=== PATIENT | female | born 1935 | race Caucasian/White ===

== ENCOUNTER 2016-06-28 12:23 | Emergency (ER) | payer MEDICARE, OTHER ==
[~2016-06-28 12:23] MED LIST: ABREVA2 GM TOP; ALBUTEROL0.63 MG/3 NEB; ALBUTEROL2.5 MG/3 M IH; AMITIZA24 MCG PO; ANTIVERT25 MG PO; CARAFATE1 GM PO; CLONAZEPAM0.5 MG PO; COLACE100 MG PO; COLCHICINE0.6 M1 PO; COLCRYS0.6 MG PO; DESYREL50 MG PO; DUONEB 2.5-0.5MG3 ML NEB; FEOSOL325 MG PO; FOLIC ACID1 MG PO; GABAPENTIN400 MG PO; HYDROCODON-ACE1 EAC6 PO; KLOR-CON 88 MEQ PO; LEVAQUIN250 MG PO; LEVAQUIN500 MG PO; LEVAQUIN750 MG PO; LIDODERM700 MG TP; LIPITOR10 MG PO; MEGACE ES625 MG/5 M PO; MEGACE400 MG/10 PO; MULTIVITAMINS1 EAC1 PO; NEURONTIN800 MG PO; NICODERM 7MG PAT1 EA TD; OXYCODON-ACETA1 EAC1 PO; PANTOPRAZOLE SO40 MG PO; PERCOCET 10-321 EACH PO; PLAVIX75 MG PO; POTASSIUM CHLOR8 ME1 PO; PREDNISONE10 MG PO; PREMARIN VAG CR45 GM PV; SYMBICORT 16060 PUFF INH; THEOPHYLLINE C300 MG PO; TYLENOL325 M1 PO; XANAX0.5 MG PO; XOPENEX0.63 MG/3 NEB; ZOFRAN4 MG PO; [UNRECOGNIZED DRUG - OTHER] PO
[2016-06-28 13:01] LABS: BASO % 0.1 % (0.1-1.2); GRAN # 9.3 10_X3_uL (1.6-6.1); GRAN % 80.2 % (34.0-71.1); HEMATOCRIT 42.9 % (34-45); HEMOGLOBIN 13.1 g/dL (11.2-15.7); LYMPH # 0.6 10_X3_uL (1.2-3.7); LYMPH % 5.5 % (19.3-51.7); MEAN CORPUSCULAR HEMOGLOBIN 29.6 pg (27.0-33.0); MEAN CORPUSCULAR HGB CONC 30.5 g/dL (32.0-36.0); MEAN CORPUSCULAR VOLUME 97.1 fL (79-95); MEAN PLATELET VOLUME 11.2 fl (7.5-11.5); MONO # 1.7 10_X3_uL (0.2-0.9); MONO % 14.2 % (4.7-12.5); PLATELET COUNT 159 x10_3/uL (182-369); RED BLOOD COUNT 4.42 x10_6/uL (3.9-5.2); RED CELL DISTRIBUTION WIDTH 13.9 % (11.7-14.4); WHITE BLOOD COUNT 11.6 x10_3/uL (4.0-10.0)
[2016-06-28 13:18] LABS: ALBUMIN 3.8 gm/dL (3.4-5.0); BILIRUBIN,TOTAL 0.17 mg/dL (0.0-1.0); CREATININE 1.2 mg/dL (0.6-1.3); POTASSIUM 5.9 mmol/L (3.5-5.1); TOTAL PROTEIN 6.3 gm/dL (6.4-8.2)
[2016-06-28 16:08] LABS: CALCIUM 9.6 mg/dL (8.7-10.7)
== END 2016-06-28 16:58 | disposition short-term general hospital (02) ==
LOC: ER 12:23
PROVIDERS: Emergency Medicine
DX: E87.5 Hyperkalemia (principal); R79.89 Other specified abnormal findings of blood chemistry; R53.1 Weakness; R25.9 Unspecified abnormal involuntary movements; J44.9 Chronic obstructive pulmonary disease, unspecified; R10.9 Unspecified abdominal pain; F17.210 Nicotine dependence, cigarettes, uncomplicated; Z85.028 Personal history of other malignant neoplasm of stomach; Z79.899 Other long term (current) drug therapy
CPT/HCPCS: 36415; 70450; 71010; 80053; 82550; 82553; 85025; 93005; 96374; 96375; 99070; 99285; 99285-25

== ENCOUNTER 2016-07-12 13:17 | Emergency (ER) | payer MEDICARE, OTHER | END 2016-07-12 18:35 | disposition other institution (70) | LOC: ER 13:17 | DX: N30.90 Cystitis, unspecified without hematuria (principal); R11.10 Vomiting, unspecified; I51.9 Heart disease, unspecified; I10 Essential (primary) hypertension; J44.9 Chronic obstructive pulmonary disease, unspecified; Z85.028 Personal history of other malignant neoplasm of stomach; Z90.710 Acquired absence of both cervix and uterus; F17.210 Nicotine dependence, cigarettes, uncomplicated; Z88.5 Allergy status to narcotic agent | CPT/HCPCS: 99284; 99284-25 ==

== ENCOUNTER 2016-07-12 13:17 | Inpatient (IN) | payer MEDICARE, OTHER ==
[~2016-07-12] VITALS: Ht 157.5 cm; Wt 43.0 kg
[2016-07-12 14:29] LABS: BASO % 0.3 % (0.1-1.2); GRAN # 2.2 10_X3_uL (1.6-6.1); GRAN % 65.4 % (34.0-71.1); HEMATOCRIT 35.3 % (34-45); HEMOGLOBIN 11.1 g/dL (11.2-15.7); LYMPH # 0.9 10_X3_uL (1.2-3.7); LYMPH % 25.9 % (19.3-51.7); MEAN CORPUSCULAR HEMOGLOBIN 29.6 pg (27.0-33.0); MEAN CORPUSCULAR HGB CONC 31.4 g/dL (32.0-36.0); MEAN CORPUSCULAR VOLUME 94.1 fL (79-95); MEAN PLATELET VOLUME 9.5 fl (7.5-11.5); MONO # 0.3 10_X3_uL (0.2-0.9); MONO % 8.4 % (4.7-12.5); PLATELET COUNT 406 x10_3/uL (182-369); RED BLOOD COUNT 3.75 x10_6/uL (3.9-5.2); RED CELL DISTRIBUTION WIDTH 14.3 % (11.7-14.4); WHITE BLOOD COUNT 3.3 x10_3/uL (4.0-10.0)
[2016-07-12 14:58] LABS: ALBUMIN 3.4 gm/dL (3.4-5.0); ALKALINE PHOSPHATASE 93 U/L (50-136); ALT/SGPT 11 U/L (3.5-33.9); AMYLASE 37 U/L (15.62-74.58); AST/SGOT 19 U/L (7.04-26.96); BILIRUBIN,TOTAL 0.21 mg/dL (0.0-1.0); BLOOD UREA NITROGEN 14 mg/dL (7-18); CALCIUM 9.3 mg/dL (8.7-10.7); CARBON DIOXIDE 33 mmol/L (21-32); CREATININE < 0.5 mg/dL (0.6-1.3); GLUCOSE,RANDOM 110 mg/dL (70-99); LIPASE 22 U/L (6.75-60.75); POTASSIUM 4.2 mmol/L (3.5-5.1); SODIUM 133 mmol/L (136-145); TOTAL PROTEIN 5.8 gm/dL (6.4-8.2)
[2016-07-12 15:25] LABS: URINE BILIRUBIN 2+ (NEGATIVE); URINE BLOOD TRACE (NEGATIVE); URINE GLUCOSE (UA) NORMAL (NORMAL); URINE KETONE 3+ (NEGATIVE); URINE LEUKOCYTE ESTERASE 1+ (NEGATIVE); URINE NITRATE NEGATIVE (NEGATIVE); URINE PROTEIN 1+ (NEGATIVE)
[2016-07-12 15:40] LABS: URINE BACTERIA 1+ (NONE SEEN); URINE RBC 0-5 /[HPF] (0-2); URINE SQUAMOUS EPITHELIAL CELL 0-10 /[HPF] (NONE SEEN); URINE YEAST FEW (NONE SEEN)
[2016-07-14 07:09] LABS: HEMATOCRIT 33.2 % (34-45); HEMOGLOBIN 10.1 g/dL (11.2-15.7); MEAN CORPUSCULAR HEMOGLOBIN 28.9 pg (27.0-33.0); MEAN CORPUSCULAR HGB CONC 30.4 g/dL (32.0-36.0); MEAN CORPUSCULAR VOLUME 95.1 fL (79-95); MEAN PLATELET VOLUME 9.6 fl (7.5-11.5); RED BLOOD COUNT 3.49 x10_6/uL (3.9-5.2); RED CELL DISTRIBUTION WIDTH 14.7 % (11.7-14.4); WHITE BLOOD COUNT 3.7 x10_3/uL (4.0-10.0)
[2016-07-14 07:17] LABS: CALCIUM 8.8 mg/dL (8.7-10.7); CARBON DIOXIDE 36 mmol/L (21-32); CREATININE < 0.5 mg/dL (0.6-1.3); GLUCOSE,RANDOM 135 mg/dL (70-99); POTASSIUM 4.2 mmol/L (3.5-5.1); SODIUM 136 mmol/L (136-145)
[2016-07-14 07:25] LABS: BLOOD UREA NITROGEN 5 mg/dL (7-18)
[2016-07-15 06:35] LABS: HEMATOCRIT 32.6 % (34-45); HEMOGLOBIN 9.9 g/dL (11.2-15.7); MEAN CORPUSCULAR HEMOGLOBIN 29.6 pg (27.0-33.0); MEAN CORPUSCULAR HGB CONC 30.4 g/dL (32.0-36.0); MEAN CORPUSCULAR VOLUME 97.3 fL (79-95); MEAN PLATELET VOLUME 9.2 fl (7.5-11.5); RED BLOOD COUNT 3.35 x10_6/uL (3.9-5.2); RED CELL DISTRIBUTION WIDTH 14.7 % (11.7-14.4)
[2016-07-15 06:50] LABS: BLOOD UREA NITROGEN 5 mg/dL (7-18); CALCIUM 8.7 mg/dL (8.7-10.7); CARBON DIOXIDE 36 mmol/L (21-32); CREATININE < 0.5 mg/dL (0.6-1.3); GLUCOSE,RANDOM 100 mg/dL (70-99); MAGNESIUM 1.5 mg/dL (1.8-2.4); POTASSIUM 3.9 mmol/L (3.5-5.1); SODIUM 141 mmol/L (136-145)
[2016-07-15 21:53] LABS: URINE BILIRUBIN NEGATIVE (NEGATIVE); URINE BLOOD NEGATIVE (NEGATIVE); URINE GLUCOSE (UA) NORMAL (NORMAL); URINE KETONE NEGATIVE (NEGATIVE); URINE LEUKOCYTE ESTERASE TRACE (NEGATIVE); URINE NITRATE NEGATIVE (NEGATIVE); URINE PROTEIN NEGATIVE (NEGATIVE); UROBILINOGEN NORMAL mg/dL (<1.0)
[2016-07-15 22:19] LABS: URINE SQUAMOUS EPITHELIAL CELL 0-10 /[HPF] (NONE SEEN); URINE WBC 0-5 /[HPF] (0-5)
[2016-07-16 06:48] LABS: BLOOD UREA NITROGEN 6 mg/dL (7-18); CALCIUM 8.8 mg/dL (8.7-10.7); CARBON DIOXIDE 39 mmol/L (21-32); CREATININE < 0.5 mg/dL (0.6-1.3); GLUCOSE,RANDOM 105 mg/dL (70-99); MAGNESIUM 2.1 mg/dL (1.8-2.4); POTASSIUM 4.3 mmol/L (3.5-5.1); SODIUM 142 mmol/L (136-145)
[2016-07-16 07:03] LABS: HEMATOCRIT 32.1 % (34-45); HEMOGLOBIN 9.6 g/dL (11.2-15.7); MEAN CORPUSCULAR HEMOGLOBIN 29.2 pg (27.0-33.0); MEAN CORPUSCULAR HGB CONC 29.9 g/dL (32.0-36.0); MEAN CORPUSCULAR VOLUME 97.6 fL (79-95); MEAN PLATELET VOLUME 9.8 fl (7.5-11.5); RED BLOOD COUNT 3.29 x10_6/uL (3.9-5.2); RED CELL DISTRIBUTION WIDTH 14.8 % (11.7-14.4); WHITE BLOOD COUNT 4.5 x10_3/uL (4.0-10.0)
[2016-07-17 06:51] LABS: BLOOD UREA NITROGEN 7 mg/dL (7-18); CALCIUM 8.9 mg/dL (8.7-10.7); CARBON DIOXIDE 36 mmol/L (21-32); CREATININE < 0.5 mg/dL (0.6-1.3); GLUCOSE,RANDOM 125 mg/dL (70-99); SODIUM 141 mmol/L (136-145)
[2016-07-17 07:03] LABS: HEMATOCRIT 33.9 % (34-45); MEAN CORPUSCULAR HEMOGLOBIN 29.2 pg (27.0-33.0); MEAN CORPUSCULAR HGB CONC 29.5 g/dL (32.0-36.0); MEAN CORPUSCULAR VOLUME 98.8 fL (79-95); MEAN PLATELET VOLUME 10.2 fl (7.5-11.5); RED BLOOD COUNT 3.43 x10_6/uL (3.9-5.2); RED CELL DISTRIBUTION WIDTH 14.9 % (11.7-14.4); WHITE BLOOD COUNT 5.6 x10_3/uL (4.0-10.0)
== END 2016-07-17 12:25 | disposition home or self-care (01) | DRG 690 ==
LOC: ER 13:17 → MS 18:35
PROVIDERS: Emergency Medicine; Family Medicine; ADMIT Family Medicine
DX: N39.0 Urinary tract infection, site not specified (principal); K52.9 Noninfective gastroenteritis and colitis, unspecified; D64.9 Anemia, unspecified; E83.42 Hypomagnesemia; E86.0 Dehydration; T48.6X5A Adverse effect of antiasthmatics, initial encounter; J44.9 Chronic obstructive pulmonary disease, unspecified; I11.0 Hypertensive heart disease with heart failure; I50.9 Heart failure, unspecified; R50.9 Fever, unspecified; M10.9 Gout, unspecified; R19.7 Diarrhea, unspecified; R11.2 Nausea with vomiting, unspecified; R10.9 Unspecified abdominal pain; R06.02 Shortness of breath; Z90.710 Acquired absence of both cervix and uterus; Z87.891 Personal history of nicotine dependence; Z88.5 Allergy status to narcotic agent; Z79.899 Other long term (current) drug therapy; Z79.891 Long term (current) use of opiate analgesic
CPT/HCPCS: 36415; 71250; 80048; 80053; 80198; 81001; 82150; 83605; 83690; 83735; 85025; 87040; 87086; 87400; 94640; 94664; 96365; 96375; 99070; 99284; 99284-25; J8597; Q0169

== ENCOUNTER 2016-08-03 13:26 | Inpatient (IN) | payer MEDICARE, OTHER ==
[~2016-08-03] VITALS: Ht 165.1 cm; Wt 44.0 kg
[2016-08-03 14:27] LABS: BASO % 0.5 % (0.1-1.2); EOS # 0.1 10_X3_uL (0.0-0.4); GRAN % 64.3 % (34.0-71.1); HEMATOCRIT 35.7 % (34-45); HEMOGLOBIN 10.6 g/dL (11.2-15.7); LYMPH # 1.7 10_X3_uL (1.2-3.7); LYMPH % 22.1 % (19.3-51.7); MEAN CORPUSCULAR HEMOGLOBIN 29.9 pg (27.0-33.0); MEAN CORPUSCULAR HGB CONC 29.7 g/dL (32.0-36.0); MEAN CORPUSCULAR VOLUME 100.8 fL (79-95); MEAN PLATELET VOLUME 9.2 fl (7.5-11.5); MONO # 0.9 10_X3_uL (0.2-0.9); MONO % 12.1 % (4.7-12.5); PLATELET COUNT 438 x10_3/uL (182-369); RED BLOOD COUNT 3.54 x10_6/uL (3.9-5.2); RED CELL DISTRIBUTION WIDTH 15.7 % (11.7-14.4); WHITE BLOOD COUNT 7.8 x10_3/uL (4.0-10.0)
[2016-08-03 16:57] LABS: BLOOD UREA NITROGEN 12 mg/dL (7-18); CALCIUM 9.1 mg/dL (8.7-10.7); CARBON DIOXIDE 36 mmol/L (21-32); CREATININE < 0.5 mg/dL (0.6-1.3); GLUCOSE,RANDOM 105 mg/dL (70-99); POTASSIUM 4.4 mmol/L (3.5-5.1); SODIUM 139 mmol/L (136-145)
[2016-08-05 14:08] LABS: URINE BILIRUBIN NEGATIVE (NEGATIVE); URINE BLOOD NEGATIVE (NEGATIVE); URINE GLUCOSE (UA) NORMAL (NORMAL); URINE KETONE NEGATIVE (NEGATIVE); URINE LEUKOCYTE ESTERASE TRACE (NEGATIVE); URINE NITRATE NEGATIVE (NEGATIVE); URINE PROTEIN TRACE (NEGATIVE); UROBILINOGEN NORMAL mg/dL (<1.0)
[2016-08-05 14:34] LABS: URINE SQUAMOUS EPITHELIAL CELL 0-10 /[HPF] (NONE SEEN); URINE WBC 0-5 /[HPF] (0-5)
== END 2016-08-08 10:42 | disposition home or self-care (01) | DRG 192 ==
LOC: MS 13:26
PROVIDERS: Family Medicine; ADMIT Family Medicine
DX: J44.1 Chronic obstructive pulmonary disease with (acute) exacerbation (principal); R06.02 Shortness of breath; M62.50 Muscle wasting and atrophy, not elsewhere classified, unspecified site; R53.1 Weakness; N28.9 Disorder of kidney and ureter, unspecified; F41.9 Anxiety disorder, unspecified; I10 Essential (primary) hypertension; D64.9 Anemia, unspecified; I51.9 Heart disease, unspecified; Z79.899 Other long term (current) drug therapy; Z79.891 Long term (current) use of opiate analgesic; Z79.02 Long term (current) use of antithrombotics/antiplatelets; Z88.1 Allergy status to other antibiotic agents; Z88.5 Allergy status to narcotic agent; Z90.710 Acquired absence of both cervix and uterus; F17.210 Nicotine dependence, cigarettes, uncomplicated; Z80.9 Family history of malignant neoplasm, unspecified; Z83.3 Family history of diabetes mellitus; Z82.49 Family history of ischemic heart disease and other diseases of the circulatory system
CPT/HCPCS: 36415; 71020; 80048; 80198; 81001; 85025; 86738; 87040; 93005; 93041; 94640; 94664; 97116; 97161; 99070